=== PATIENT | female | born 1965 | race Caucasian/White ===

== ENCOUNTER → 2021-03-10 11:12 | Outpatient (CLI) | payer OTHER, SELFPAY ==
[2021-03-10 19:28] LABS: Alanine Aminotransferase 16 IU/L (<35); Albumin 4.5 g/dL (3.5-5.0); Albumin Globulin Ratio 1.5 (1.0-2.8); Alkaline Phosphatase 106 U/L (38-126); Aspartate Aminotransferase 34 IU/L (14-36); BUN Creatinine Ratio 18.6 (6-22); Bilirubin Total 0.5 mg/dL (0.2-1.3); Blood Urea Nitrogen 18 mg/dL (7-17); Carbon Dioxide 27 mmol/L (22-32); Chloride 103 mmol/L (98-107); Cholesterol 251 mg/dL (140-199); Estimated Glomerular Filt Rate 59.4 mL/min (>60); Glucose 92 mg/dL (70-100); HDL Cholesterol 80 mg/dL (40-60); HEMOLYSIS 16 (0-50); LDL Cholesterol Calculated 146 mg/dL (<100); Potassium 4.8 mmol/L (3.4-5.1); Sodium 138 mmol/L (137-145); Total Protein 7.5 g/dL (6.3-8.2); Triglycerides 123 mg/dL (35-150)
[2021-03-10 19:43] LABS: Add Manual Diff / Slide Review NO; Basophils Absolute Auto 0 /uL (0-100); Basophils Percent Auto 0.5 % (0-2); Eosinophils Absolute Auto 200 /uL (0-450); Eosinophils Percent Auto 3.6 % (2-4); Hematocrit 40.1 % (36-46); Hemoglobin 13.5 g/dL (12.0-16.0); Lymphocytes Absolute Auto 1500 /uL (1100-4500); Lymphocytes Percent Auto 23.1 % (25-40); Mean Corpuscular HGB Conc 33.7 % (30-36); Mean Corpuscular Hemoglobin 29.8 PG (26-34); Mean Corpuscular Volume 88.5 fL (80-100); Monocytes Absolute Auto 500 /uL (0-900); Monocytes Percent Auto 7.2 % (3-14); Neutrophils Absolute Auto 4300 /uL (1500-7000); Neutrophils Percent Auto 65.6 % (50-75); Platelet Count 305 X10^3/uL (150-400); Red Blood Cell Count 4.54 X10^6/uL (4.0-5.2); Red Cell Distribution Width 12.9 % (11.6-14.8); White Blood Cell Count 6.5 X10^3/uL (4.5-11.0)
[2021-03-10 20:16] LABS: Vitamin B12 876 pg/mL (239-931)
== END ==
PROVIDERS: PCP Physician Assistant Medical; Visit Provider Physician Assistant Medical
DX: G25.1 Drug-induced tremor (principal); N90.4 Leukoplakia of vulva; N93.9 Abnormal uterine and vaginal bleeding, unspecified; N95.2 Postmenopausal atrophic vaginitis; R25.1 Tremor, unspecified; Z12.39 Encounter for other screening for malignant neoplasm of breast
CPT/HCPCS: 80053; 80061; 82306; 82607; 83036; 85025

== ENCOUNTER → 2021-10-21 11:37 | Outpatient (CLI) | payer OTHER, SELFPAY ==
--- NOTE | 2021-10-21 | DI.MG.S_ITS ---
BILATERAL DIGITAL SCREENING MAMMOGRAM 3D/2D WITH CAD: 10/21/2021 CLINICAL: Routine screening. Baseline exam Family history of breast cancer. No prior exams were available for comparison. There are scattered fibroglandular elements in both breasts. Current study was also evaluated with a Computer Aided Detection (CAD) system. No significant masses, calcifications, or other findings are seen in either breast. IMPRESSION: NEGATIVE There is no mammographic evidence of malignancy. A 1 year screening mammogram is recommended. This exam was interpreted at Station ID: [id number]. NOTE: For mammograms, a report in lay terms will be sent to the patient. Approximately 15% of breast malignancies will not be visualized mammographically. In the management of a palpable breast mass, a negative mammogram must not discourage biopsy of a clinically suspicious lesion. Electronically Signed By: Michael Yanez M.D., jr/[email or web address]:10/21/2021 12:36:52 letter sent: Normal Exam ACR BI-RADS Category 1: Negative 3341F
== END ==
PROVIDERS: PCP Physician Assistant Medical; Referring Provider Physician Assistant Medical; Visit Provider Physician Assistant Medical
DX: Z12.31 Encounter for screening mammogram for malignant neoplasm of breast (principal); Z80.3 Family history of malignant neoplasm of breast
CPT/HCPCS: 77063; 77067

== ENCOUNTER → 2022-02-08 08:47 | Outpatient (CLI) | payer OTHER, SELFPAY ==
[2022-02-08 19:17] LABS: BUN Creatinine Ratio 14.8 (6-22); Blood Urea Nitrogen 13 mg/dL (7-17); Calcium 9.1 mg/dL (8.4-10.2); Carbon Dioxide 29 mmol/L (22-32); Chloride 102 mmol/L (98-107); Cholesterol 267 mg/dL (140-199); Estimated Glomerular Filt Rate > 60 mL/min (>60); Glucose 95 mg/dL (70-100); HDL Cholesterol 68 mg/dL (40-60); HEMOLYSIS < 15 (0-50); LDL Cholesterol Calculated 170 mg/dL (<100); Potassium 4.7 mmol/L (3.4-5.1); Sodium 139 mmol/L (137-145); Triglycerides 146 mg/dL (35-150)
[2022-02-08 19:45] LABS: Thyroid Stimulating Hormone 2.82 uIU/mL (0.47-4.68)
[2022-02-09 07:18] LABS: Hemoglobin A1C% w Est Avg Glu 5.2 % (4.0-6.0)
== END ==
PROVIDERS: PCP Physician Assistant Medical; Visit Provider Psychiatry & Neurology Psychiatry
DX: F31.11 Bipolar disorder, current episode manic without psychotic features, mild (principal); F31.81 Bipolar II disorder; G24.01 Drug induced subacute dyskinesia; G25.1 Drug-induced tremor; Z79.899 Other long term (current) drug therapy
CPT/HCPCS: 80048; 80061; 83036; 84443

== ENCOUNTER → 2022-05-16 12:54 | Outpatient (CLI) | payer OTHER, SELFPAY ==
--- NOTE | 2022-05-16 12:56 | DI.US.S_ITS ---
PROCEDURE: US CAROTID DOPPLER BI INDICATIONS: concerns of vertigo TECHNIQUE: Color and pulse Doppler interrogation was performed of both carotid systems, with image documentation and velocity measurements. COMPARISON: None. FINDINGS: Stenosis calculations are based on SRU (Society of Radiologists in Ultrasound) criteria. Right side: Brachial blood pressure: 126/73 mm Hg. Common carotid artery peak systolic velocity: 113 cm/sec. Internal carotid artery peak systolic velocity: 116 cm/sec. Internal carotid artery end diastolic velocity: 50 cm/sec. External carotid artery peak systolic velocity: 90 cm/sec. ICA/CCA peak systolic ratio: 1 . Santos scale imaging description: Mild atheromatous plaque is present at the carotid bulb. Percent internal carotid artery stenosis: Less than 50% stenosis. Vertebral artery: Flow direction is antegrade. Left side: Brachial blood pressure: 127/78 mm Hg. Common carotid artery peak systolic velocity: 141 cm/sec. Internal carotid artery peak systolic velocity: 141 cm/sec. Internal carotid artery end diastolic velocity: 59 cm/sec. External carotid artery peak systolic velocity: 161 cm/sec. ICA/CCA peak systolic ratio: 1.0. Santos scale imaging description: Mild atheromatous plaque is present at the carotid bulb. Percent internal carotid artery stenosis: 50-69% stenosis. Vertebral artery: Flow direction is antegrade. IMPRESSION: Less than 50% stenosis of the right internal carotid artery and 50-69% stenosis of the left internal carotid artery. Dictated by: Estrella Kingsley M.D. on 05/16/2022 at 15:42 Approved by: Estrella Kingsley M.D. on 05/16/2022 at 15:44
== END ==
PROVIDERS: PCP Physician Assistant Medical; Referring Provider Physician Assistant Medical; Visit Provider Physician Assistant Medical
DX: R42 Dizziness and giddiness (principal); I65.23 Occlusion and stenosis of bilateral carotid arteries
CPT/HCPCS: 93880

== ENCOUNTER → 2022-09-13 09:56 | Outpatient (CLI) | payer OTHER, SELFPAY ==
[2022-09-13 19:39] LABS: Alanine Aminotransferase 35 IU/L (<35); Albumin 4.6 g/dL (3.5-5.0); Albumin Globulin Ratio 1.7 (1.0-2.8); Alkaline Phosphatase 120 U/L (38-126); Aspartate Aminotransferase 41 IU/L (14-36); Bilirubin Total 0.6 mg/dL (0.2-1.3); Blood Urea Nitrogen 10 mg/dL (7-17); Calcium 9.6 mg/dL (8.4-10.2); Carbon Dioxide 31 mmol/L (22-32); Chloride 101 mmol/L (98-107); Cholesterol 162 mg/dL (140-199); Estimated Glomerular Filt Rate > 60 mL/min (>60); Globulin 2.7 g/dL (1.7-4.1); Glucose 90 mg/dL (70-100); HDL Cholesterol 71 mg/dL (40-60); HEMOLYSIS < 15 (0-50); LDL Cholesterol Calculated 74 mg/dL (<100); Potassium 4.6 mmol/L (3.4-5.1); Sodium 138 mmol/L (137-145); Total Protein 7.3 g/dL (6.3-8.2); Triglycerides 84 mg/dL (35-150)
== END ==
PROVIDERS: PCP Physician Assistant Medical; Visit Provider Physician Assistant Medical
DX: E78.00 Pure hypercholesterolemia, unspecified (principal)
CPT/HCPCS: 80053; 80061

== ENCOUNTER → 2022-11-20 10:51 | Outpatient (CLI) | payer OTHER, SELFPAY ==
--- NOTE | 2022-11-20 10:51 | DI.MG.S_ITS ---
BILATERAL DIGITAL SCREENING MAMMOGRAM 3D/2D WITH CAD: 11/20/2022 CLINICAL: Routine screening. Comparison is made to exam dated: 10/21/2021 mammogram - [facility]. Both breasts are heterogeneously dense, which may obscure small masses (category c / 51-75% glandular tissue). Current study was also evaluated with a Computer Aided Detection (CAD) system. No significant masses, calcifications, or other findings are seen in either breast. There has been no significant interval change. IMPRESSION: NEGATIVE There is no mammographic evidence of malignancy. A 1 year screening mammogram is recommended. Based on the Tyrer Cuzick model (a risk assessment model) the patient's lifetime risk is 14.5% and her 10 year risk is 5.1%. According to the ACR, ACS, and NCCN guidelines, an annual breast MRI exam along with mammogram is recommended if the patient's lifetime risk is 20% or greater. This exam was interpreted at Station ID: [id number]. NOTE: For mammograms, a report in lay terms will be sent to the patient. Approximately 15% of breast malignancies will not be visualized mammographically. In the management of a palpable breast mass, a negative mammogram must not discourage biopsy of a clinically suspicious lesion. Electronically Signed By: Fco pelayo/michoacano:11/20/2022 12:11:18 letter sent: Normal Exam ACR BI-RADS Category 1: Negative 3341F
== END ==
PROVIDERS: PCP Physician Assistant Medical; Referring Provider Physician Assistant Medical; Visit Provider Physician Assistant Medical
DX: Z12.31 Encounter for screening mammogram for malignant neoplasm of breast (principal)
CPT/HCPCS: 77063; 77067

== ENCOUNTER → 2022-12-11 09:22 | Outpatient (CLI) | payer OTHER, SELFPAY ==
[2022-12-11 20:41] LABS: Alanine Aminotransferase 34 IU/L (<35); Albumin 4.4 g/dL (3.5-5.0); Albumin Globulin Ratio 1.5 (1.0-2.8); Alkaline Phosphatase 118 U/L (38-126); Aspartate Aminotransferase 39 IU/L (14-36); BUN Creatinine Ratio 9.9 (6-22); Bilirubin Total 0.3 mg/dL (0.2-1.3); Blood Urea Nitrogen 10 mg/dL (7-17); Calcium 9.4 mg/dL (8.4-10.2); Carbon Dioxide 33 mmol/L (22-32); Chloride 99 mmol/L (98-107); Cholesterol 190 mg/dL (140-199); Estimated Glomerular Filt Rate > 60 mL/min (>60); Globulin 2.9 g/dL (1.7-4.1); Glucose 91 mg/dL (70-100); HDL Cholesterol 83 mg/dL (40-60); HEMOLYSIS < 15 (0-50); LDL Cholesterol Calculated 85 mg/dL (<100); Potassium 4.6 mmol/L (3.4-5.1); Sodium 138 mmol/L (137-145); Total Protein 7.3 g/dL (6.3-8.2); Triglycerides 109 mg/dL (35-150)
== END ==
PROVIDERS: PCP Physician Assistant Medical; Visit Provider Physician Assistant Medical
DX: E78.00 Pure hypercholesterolemia, unspecified (principal); R79.89 Other specified abnormal findings of blood chemistry
CPT/HCPCS: 80053; 80061

== ENCOUNTER → 2023-03-28 09:24 | Outpatient (CLI) | payer OTHER, SELFPAY ==
[2023-03-28 20:00] LABS: Add Manual Diff / Slide Review NO; Basophils Absolute Auto 0 /uL (0-100); Basophils Percent Auto 0.7 % (0-2); Eosinophils Absolute Auto 400 /uL (0-450); Eosinophils Percent Auto 6.7 % (2-4); Hematocrit 36.9 % (36-46); Hemoglobin 12.5 g/dL (12.0-16.0); Lymphocytes Absolute Auto 1500 /uL (1100-4500); Lymphocytes Percent Auto 22.8 % (25-40); Mean Corpuscular HGB Conc 33.9 % (30-36); Mean Corpuscular Hemoglobin 30.5 PG (26-34); Mean Corpuscular Volume 90.2 fL (80-100); Monocytes Absolute Auto 500 /uL (0-900); Monocytes Percent Auto 8.5 % (3-14); Neutrophils Absolute Auto 3900 /uL (1500-7000); Neutrophils Percent Auto 61.3 % (50-75); Platelet Count 260 X10^3/uL (150-400); Red Blood Cell Count 4.09 X10^6/uL (4.0-5.2); Red Cell Distribution Width 13.4 % (11.6-14.8); White Blood Cell Count 6.4 X10^3/uL (4.5-11.0)
[2023-03-28 20:16] LABS: Alanine Aminotransferase 24 IU/L (<35); Albumin 4.5 g/dL (3.5-5.0); Albumin Globulin Ratio 1.7 (1.0-2.8); Alkaline Phosphatase 121 U/L (38-126); Aspartate Aminotransferase 38 IU/L (14-36); BUN Creatinine Ratio 11.7 (6-22); Bilirubin Total 0.5 mg/dL (0.2-1.3); Blood Urea Nitrogen 11 mg/dL (7-17); Calcium 9.4 mg/dL (8.4-10.2); Carbon Dioxide 29 mmol/L (22-32); Chloride 102 mmol/L (98-107); Cholesterol 180 mg/dL (140-199); Estimated Glomerular Filt Rate > 60 mL/min (>60); Globulin 2.7 g/dL (1.7-4.1); Glucose 92 mg/dL (70-100); HDL Cholesterol 88 mg/dL (40-60); HEMOLYSIS < 15 (0-50); LDL Cholesterol Calculated 79 mg/dL (<100); Potassium 4.5 mmol/L (3.4-5.1); Sodium 139 mmol/L (137-145); Total Protein 7.2 g/dL (6.3-8.2); Triglycerides 63 mg/dL (35-150)
[2023-03-28 20:17] LABS: TSH w/ Reflex to FT4 2.29 uIU/mL (0.47-4.68)
== END ==
PROVIDERS: PCP Physician Assistant Medical; Visit Provider Physician Assistant Medical
DX: E78.00 Pure hypercholesterolemia, unspecified (principal); J30.9 Allergic rhinitis, unspecified; R05.9 Cough, unspecified; R25.1 Tremor, unspecified; R79.89 Other specified abnormal findings of blood chemistry
CPT/HCPCS: 80053; 80061; 84443; 85025

== ENCOUNTER → 2023-10-30 13:23 | Outpatient (CLI) | payer OTHER, SELFPAY ==
[2023-10-30 19:39] LABS: Alanine Aminotransferase 26 IU/L (<35); Albumin 4.3 g/dL (3.5-5.0); Albumin Globulin Ratio 1.9 (1.0-2.8); Alkaline Phosphatase 112 U/L (38-126); Aspartate Aminotransferase 35 IU/L (14-36); BUN Creatinine Ratio 13.6 (6-22); Bilirubin Total 0.3 mg/dL (0.2-1.3); Blood Urea Nitrogen 11 mg/dL (7-17); Calcium 9.3 mg/dL (8.4-10.2); Carbon Dioxide 28 mmol/L (22-32); Chloride 99 mmol/L (98-107); Estimated Glomerular Filt Rate > 60 mL/min (>60); Globulin 2.3 g/dL (1.7-4.1); Glucose 106 mg/dL (70-100); HEMOLYSIS < 15 (0-50); Potassium 4.1 mmol/L (3.4-5.1); Sodium 133 mmol/L (137-145); Total Protein 6.6 g/dL (6.3-8.2)
[2023-10-30 20:06] LABS: Hemoglobin A1C% w Est Avg Glu 5.1 % (4.0-6.0)
[2023-10-30 20:12] LABS: TSH w/ Reflex to FT4 1.94 uIU/mL (0.47-4.68)
[2023-10-30 20:48] LABS: Folate 18.4 ng/mL (2.76-20.0)
[2023-10-30 21:29] LABS: Vitamin B12 Reflex MMA if <400 > 1000 pg/mL (239-931)
[2023-11-01 15:12] LABS: Lamotrigine Lamictal 7.5 ug/mL (2.0-20.0)
[2023-11-05 08:42] LABS: Treponema pallidum Antibodies Non Reactive
== END ==
PROVIDERS: PCP Family Medicine; Visit Provider Family Medicine
DX: F31.81 Bipolar II disorder (principal); G24.01 Drug induced subacute dyskinesia; R79.89 Other specified abnormal findings of blood chemistry; Z79.899 Other long term (current) drug therapy; R41.3 Other amnesia
CPT/HCPCS: 80053; 80175; 82607; 82746; 83036; 84443; 86780

== ENCOUNTER → 2023-11-05 11:23 | Outpatient (CLI) | payer OTHER, SELFPAY ==
--- NOTE | 2023-11-05 11:24 | DI.MRI.S_ITS ---
PROCEDURE: MR HEAD/BRAIN WO CON INDICATIONS: memory loss - new changes TECHNIQUE: Noncontrast axial T1 spin echo, axial T2 fast spin echo, sagittal and axial FLAIR, coronal T2 fast spin echo, axial gradient echo, axial diffusion and ADC through the brain. COMPARISON: None. FINDINGS: Image quality: Excellent. CSF Spaces: Basal cisterns are patent. No extra-axial fluid collections. Ventricles are normal in size and shape. Brain: No intracranial masses or hemorrhage. Santos/white matter interface is normal. Brainstem appears normal. Diffusion-weighted images demonstrate no acute infarct. No chronic ischemic insults. Normal intravascular flow voids are present. Skull and face: Calvarium has normal marrow signal. Orbits appear normal. Sinuses: Sinuses and mastoids are clear. Within the posterior aspect of the left nasal cavity, there is a 3 cm apparent mass seen. IMPRESSION: No imaging explanation is found for this patient's presenting symptoms. There is an apparent 3 cm mass within the posterior aspect of the left nasal cavity. Differential diagnosis includes a large polyp. Please consider ENT consultation. Dictated by: Abdon Lopez M.D. on 11/05/2023 at 12:47 Approved by: Abdon Lopez M.D. on 11/05/2023 at 12:48
== END ==
LOC: MRI 11:23
PROVIDERS: PCP Family Medicine; Referring Provider Family Medicine; Visit Provider Family Medicine
DX: R41.3 Other amnesia (principal); G24.01 Drug induced subacute dyskinesia; R79.89 Other specified abnormal findings of blood chemistry; Z79.899 Other long term (current) drug therapy; Z81.8 Family history of other mental and behavioral disorders; I65.29 Occlusion and stenosis of unspecified carotid artery
CPT/HCPCS: 70551

== ENCOUNTER → 2024-02-19 12:23 | Outpatient (CLI) | payer OTHER, SELFPAY ==
--- NOTE | 2024-02-19 12:26 | DI.MG.S_ITS ---
BILATERAL DIGITAL SCREENING MAMMOGRAM 3D/2D WITH CAD: 02/19/2024 CLINICAL: Routine screening. Family history of breast cancer. Comparison is made to exams dated: 11/20/2022 mammogram and 10/21/2021 mammogram - [facility]. Both breasts are heterogeneously dense, which may obscure small masses (category c / 51-75% glandular tissue). Current study was also evaluated with a Computer Aided Detection (CAD) system. No significant masses, calcifications, or other findings are seen in either breast. There has been no significant interval change. IMPRESSION: NEGATIVE There is no mammographic evidence of malignancy. A 1 year screening mammogram is recommended. Based on the Tyrer Cuzick model (a risk assessment model) the patient's lifetime risk is 14.0% and her 10 year risk is 5.5%. According to the ACR, ACS, and NCCN guidelines, an annual breast MRI exam along with mammogram is recommended if the patient's lifetime risk is 20% or greater. This exam was interpreted at Station ID: [id number]. NOTE: For mammograms, a report in lay terms will be sent to the patient. Approximately 15% of breast malignancies will not be visualized mammographically. In the management of a palpable breast mass, a negative mammogram must not discourage biopsy of a clinically suspicious lesion. Electronically Signed By: Dexter herrera/michoacano:02/19/2024 15:47:57 letter sent: Normal Exam ACR BI-RADS Category 1: Negative 3341F
--- NOTE | 2024-02-19 12:44 | DI.CT.S_ITS ---
PROCEDURE: CT SINUS SCREEN WO CON INDICATIONS: INTRANASAL MASS / NASAL OBSTRUCTION TECHNIQUE: Noncontrast 3.0 mm axial images acquired from the frontal sinuses to the mid-sella, with coronal and sagittal reformats. For radiation dose reduction, the following was used: automated exposure control, adjustment of mA and/or kV according to patient size. COMPARISON: None. FINDINGS: Image quality: Excellent. Maxillary Sinuses: No bony remodeling or destruction. Sinuses are clear. Ethmoid Air Cells: No bony remodeling or destruction. Sinuses are clear. Sphenoid Sinuses: No bony remodeling or destruction. Sinuses are clear. Frontal Sinuses: No bony remodeling or destruction. Sinuses are clear. Ostiomeatal Complexes: Ostiomeatal complexes are patent. No Ashleigh cells. Miscellaneous: Visualized intra-orbital contents are normal. No pramod bullosa or paradoxical turbinate curvature. There is mild leftward nasal septal deviation, with a leftward directed bony nasal septal spur. Abnormal soft tissue can be seen involving the posterior aspect of the left nasal cavity inferiorly, measuring 3 x 1.3 cm in greatest axial dimension, with a craniocaudal extent of 2.2 cm. Associated bony remodeling changes are seen. IMPRESSION: There is a 3 cm mass along the inferior aspect of the left nasal cavity, with associated remodeling change. Although a large nasal polyp is possible, please consider a soft tissue mass. Dictated by: Abdon Lopez M.D. on 02/19/2024 at 13:56 Approved by: Abdon Lopez M.D. on 02/19/2024 at 13:58
== END ==
PROVIDERS: PCP Family Medicine; Referring Provider Otolaryngology; Visit Provider Otolaryngology
DX: Z12.31 Encounter for screening mammogram for malignant neoplasm of breast (principal); Z80.3 Family history of malignant neoplasm of breast; R92.333 Mammographic heterogeneous density, bilateral breasts; J34.89 Other specified disorders of nose and nasal sinuses; R22.0 Localized swelling, mass and lump, head
CPT/HCPCS: 70486; 77063; 77067

== ENCOUNTER → 2024-06-02 09:16 | Outpatient (CLI) | payer BC, SELFPAY ==
[2024-06-02 19:05] LABS: Hemoglobin A1C% w Est Avg Glu 5.3 % (4.0-6.0)
[2024-06-02 19:07] LABS: Add Manual Diff / Slide Review NO; Basophils Absolute Auto 0 /uL (0-100); Basophils Percent Auto 0.7 % (0-2); Eosinophils Absolute Auto 200 /uL (0-450); Eosinophils Percent Auto 3.4 % (2-4); Hematocrit 37.4 % (36-46); Hemoglobin 12.5 g/dL (12.0-16.0); Lymphocytes Absolute Auto 1200 /uL (1100-4500); Lymphocytes Percent Auto 22.8 % (25-40); Mean Corpuscular HGB Conc 33.5 % (30-36); Mean Corpuscular Volume 86.7 fL (80-100); Monocytes Absolute Auto 500 /uL (0-900); Monocytes Percent Auto 8.7 % (3-14); Neutrophils Absolute Auto 3400 /uL (1500-7000); Neutrophils Percent Auto 64.4 % (50-75); Platelet Count 285 X10^3/uL (150-400); Red Blood Cell Count 4.31 X10^6/uL (4.0-5.2); Red Cell Distribution Width 13.8 % (11.6-14.8); White Blood Cell Count 5.3 X10^3/uL (4.5-11.0)
[2024-06-02 19:09] LABS: Alanine Aminotransferase 31 IU/L (<35); Albumin 4.4 g/dL (3.5-5.0); Albumin Globulin Ratio 1.4 (1.0-2.8); Alkaline Phosphatase 120 U/L (38-126); Aspartate Aminotransferase 86 IU/L (14-36); BUN Creatinine Ratio 5.6 (6-22); Bilirubin Total 0.4 mg/dL (0.2-1.3); Blood Urea Nitrogen 5 mg/dL (7-17); Calcium 9.5 mg/dL (8.4-10.2); Carbon Dioxide 31 mmol/L (22-32); Chloride 99 mmol/L (98-107); Cholesterol 160 mg/dL (140-199); Estimated Glomerular Filt Rate > 60 mL/min (>60); Globulin 3.2 g/dL (1.7-4.1); Glucose 90 mg/dL (70-100); HDL Cholesterol 71 mg/dL (40-60); HEMOLYSIS 22 (0-50); LDL Cholesterol Calculated 76 mg/dL (<100); Potassium 4.4 mmol/L (3.4-5.1); Sodium 136 mmol/L (137-145); Total Protein 7.6 g/dL (6.3-8.2); Triglycerides 66 mg/dL (35-150)
[2024-06-02 19:25] LABS: Vitamin D 25 Hydroxy (D3) 75.1 ng/mL (30.0-100.0)
== END ==
PROVIDERS: PCP Family Medicine; Referring Provider Family Medicine; Visit Provider Family Medicine
DX: Z51.81 Encounter for therapeutic drug level monitoring (principal); E78.2 Mixed hyperlipidemia; F31.81 Bipolar II disorder; R79.89 Other specified abnormal findings of blood chemistry; Z13.1 Encounter for screening for diabetes mellitus; E55.9 Vitamin D deficiency, unspecified; G24.01 Drug induced subacute dyskinesia; Z79.899 Other long term (current) drug therapy; R41.3 Other amnesia
CPT/HCPCS: 80053; 80061; 82306; 83036; 85025

== ENCOUNTER → 2024-11-05 08:53 | Outpatient (CLI) | payer BC, SELFPAY ==
[2024-11-05 19:01] LABS: HEMOLYSIS < 15 (0-50); Iron 67 ug/dL (37-170)
[2024-11-05 19:02] LABS: Add Manual Diff / Slide Review NO; Basophils Absolute Auto 0 /uL (0-100); Basophils Percent Auto 0.6 % (0-2); Eosinophils Absolute Auto 100 /uL (0-450); Hemoglobin 12.7 g/dL (12.0-16.0); Lymphocytes Absolute Auto 1200 /uL (1100-4500); Lymphocytes Percent Auto 18.2 % (25-40); Mean Corpuscular HGB Conc 33.5 % (30-36); Mean Corpuscular Hemoglobin 29.2 PG (26-34); Mean Corpuscular Volume 87.1 fL (80-100); Monocytes Absolute Auto 500 /uL (0-900); Monocytes Percent Auto 7.9 % (3-14); Neutrophils Absolute Auto 4800 /uL (1500-7000); Neutrophils Percent Auto 71.3 % (50-75); Platelet Count 328 X10^3/uL (150-400); Red Blood Cell Count 4.36 X10^6/uL (4.0-5.2); Red Cell Distribution Width 13.7 % (11.6-14.8); White Blood Cell Count 6.7 X10^3/uL (4.5-11.0)
[2024-11-05 19:10] LABS: HEMOLYSIS 37 (0-50)
[2024-11-05 19:13] LABS: Alanine Aminotransferase 25 IU/L (<35); Albumin 4.9 g/dL (3.5-5.0); Albumin Globulin Ratio 1.8 (1.0-2.8); Alkaline Phosphatase 126 U/L (38-126); Aspartate Aminotransferase 70 IU/L (14-36); BUN Creatinine Ratio 6.5 (6-22); Bilirubin Total 0.7 mg/dL (0.2-1.3); Blood Urea Nitrogen 6 mg/dL (7-17); Calcium 9.7 mg/dL (8.4-10.2); Carbon Dioxide 26 mmol/L (22-32); Chloride 98 mmol/L (98-107); Estimated Glomerular Filt Rate > 60 mL/min (>60); Gamma Glutamyl Transpeptidase 26 U/L (12-43); Globulin 2.8 g/dL (1.7-4.1); Glucose 98 mg/dL (70-100); Potassium 4.6 mmol/L (3.4-5.1); Sodium 134 mmol/L (137-145); Total Protein 7.7 g/dL (6.3-8.2)
[2024-11-05 19:24] LABS: Percent Iron Saturation 25 % (15-50); Total Iron Binding Capacity 273 ug/dL (265-497); Transferrin 236 mg/dL (206-381)
[2024-11-05 19:39] LABS: Thyroid Stimulating Hormone 1.48 uIU/mL (0.47-4.68)
[2024-11-05 19:52] LABS: Ferritin 66 ng/mL (11-264)
[2024-11-05 19:58] LABS: Vitamin B12 > 1000 pg/mL (239-931)
[2024-11-06 23:40] LABS: HBsAg Screen Negative (Negative); Hepatitis A Antibody IgM Negative (Negative); Hepatitis B Core Antibody IgM Negative (Negative); Hepatitis C Antibody Non Reactive (Non Reactive)
[2024-11-07 03:41] LABS: RPR Screen Non Reactive (Non Reactive)
[2024-11-10 13:09] LABS: ANA Screen, IFA Negative (.)
[2024-11-12 07:36] LABS: Methylmalonic Acid,Serum 114 nmol/L (0-378)
== END ==
PROVIDERS: PCP Family Medicine; Visit Provider Family Medicine
DX: R74.8 Abnormal levels of other serum enzymes (principal); Z51.81 Encounter for therapeutic drug level monitoring; R41.3 Other amnesia; F31.81 Bipolar II disorder; J45.909 Unspecified asthma, uncomplicated; E55.9 Vitamin D deficiency, unspecified; G25.0 Essential tremor
CPT/HCPCS: 80053; 80074; 82607; 82728; 82977; 83036; 83540; 83550; 83921; 84443; 85025; 86038; 86592

== ENCOUNTER → 2025-02-24 10:47 | Outpatient (CLI) | payer BC, SELFPAY ==
[2025-02-24 19:44] LABS: Add Manual Diff / Slide Review NO; Hematocrit 38.5 % (36-46); Hemoglobin 13.0 g/dL (12.0-16.0); Lymphocytes Absolute Auto 1300 /uL (1100-4500); Mean Corpuscular HGB Conc 33.7 % (30-36); Mean Corpuscular Hemoglobin 29.6 PG (26-34); Mean Corpuscular Volume 87.9 fL (80-100); Platelet Count 309 X10^3/uL (150-400)
[2025-02-24 19:55] LABS: Alanine Aminotransferase 19 IU/L (<35); Albumin 4.5 g/dL (3.5-5.0); Albumin Globulin Ratio 2.0 (1.0-2.8); Alkaline Phosphatase 116 U/L (38-126); Blood Urea Nitrogen 12 mg/dL (7-17); Calcium 9.4 mg/dL (8.4-10.2); Carbon Dioxide 27 mmol/L (22-32); Chloride 98 mmol/L (98-107); Estimated Glomerular Filt Rate > 60 mL/min (>60); Globulin 2.3 g/dL (1.7-4.1); Glucose 84 mg/dL (70-99); HEMOLYSIS < 15 (0-50); Potassium 5.0 mmol/L (3.4-5.1); Sodium 135 mmol/L (137-145); Total Protein 6.8 g/dL (6.3-8.2)
[2025-02-24 19:58] LABS: Hemoglobin A1C% w Est Avg Glu 5.3 % (4.0-6.0)
[2025-02-24 20:12] LABS: Vitamin D 25 Hydroxy (D3) 75.3 ng/mL (30.0-100.0)
== END ==
PROVIDERS: PCP Family Medicine; Visit Provider Family Medicine
DX: R74.8 Abnormal levels of other serum enzymes (principal); E78.2 Mixed hyperlipidemia; Z79.899 Other long term (current) drug therapy
CPT/HCPCS: 80053; 82306; 83036; 85025

== ENCOUNTER → 2025-07-21 12:56 | Outpatient (CLI) | payer BC, SELFPAY ==
[2025-07-21 19:09] LABS: Alanine Aminotransferase 26 IU/L (<35); Albumin 4.4 g/dL (3.5-5.0); Albumin Globulin Ratio 1.8 (1.0-2.8); Alkaline Phosphatase 104 U/L (38-126); Blood Urea Nitrogen 7 mg/dL (7-17); Calcium 9.7 mg/dL (8.4-10.2); Carbon Dioxide 28 mmol/L (22-32); Chloride 97 mmol/L (98-107); Cholesterol 161 mg/dL (140-199); Estimated Glomerular Filt Rate > 60 mL/min (>60); Globulin 2.4 g/dL (1.7-4.1); Glucose 89 mg/dL (70-99); HDL Cholesterol 92 mg/dL (40-60); HEMOLYSIS < 15 (0-50); Potassium 4.9 mmol/L (3.4-5.1); Sodium 133 mmol/L (137-145); Total Protein 6.8 g/dL (6.3-8.2); Triglycerides 63 mg/dL (35-150)
[2025-07-21 19:23] LABS: Hemoglobin A1C% w Est Avg Glu 5.2 % (4.0-6.0)
== END ==
PROVIDERS: PCP Family Medicine; Visit Provider Family Medicine
DX: Z01.89 Encounter for other specified special examinations (principal); R79.89 Other specified abnormal findings of blood chemistry; E78.2 Mixed hyperlipidemia; Z79.899 Other long term (current) drug therapy; Z91.89 Other specified personal risk factors, not elsewhere classified
CPT/HCPCS: 80053; 80061; 83036